=== PATIENT | female | born 1995 | race African-American/Black ===

== ENCOUNTER 2018-02-26 11:25 | Observation (INO) | payer MEDICAID ==
[~2018-02-26] VITALS: Ht 160 cm; Wt 94.3 kg
[~2018-02-26 11:25] MED LIST: PREN-96 PO
[2018-02-26] MEDS ORDERED: NIFEdipine 10 MG CAP PO SCH (12:45)
[2018-02-26 12:53] LABS: Basophils # (auto) 0 uL; Basophils % (auto) 0.3 % (0.0-2.0); Eosinophils # (auto) 0.1 uL; Eosinophils % (auto) 0.7 % (0.0-7.0); Hematocrit 29.3 % (36.0-46.0); Hemoglobin 9.9 g/dL (12.2-16.2); Lymphocytes # (auto) 1.3 uL; Mean Corpuscular Hemoglobin 27.6 pg (28.0-32.0); Mean Corpuscular Hgb Conc. 33.8 g/dL (32.0-36.0); Mean Corpuscular Volume 81.6 fL (80.0-100.0); Monocytes # (auto) 0.6 uL; Monocytes % (auto) 7.4 % (0.0-12.0); Neutrophils # (auto) 5.6 uL; Neutrophils % (auto) 74.6 % (37.0-80.0); Platelet Count (auto) 231 10^3/uL (140-450); Red Blood Cells 3.59 10^6/uL (4.0-5.20); Red Cell Distribution Width 13.8 % (11.8-14.3); White Blood Cell 7.5 10^3/uL (4.4-10.8)
[2018-02-27 05:06] LABS: RPR Non Reactive (Non Reactive)
[2018-03-06] MEDS ORDERED: NIF10C GT (14:48)
== END 2018-02-26 15:30 | disposition home or self-care (01) | DRG 566 ==
LOC: LDRP 11:25
PROVIDERS: ADMIT Specialist; ATTEND Specialist
DX: O40.3XX0 Polyhydramnios, third trimester, not applicable or unspecified (principal); O62.9 Abnormality of forces of labor, unspecified; Z3A.34 34 weeks gestation of pregnancy
CPT/HCPCS: 36415; 59025; 76805; 76818; 81002; 85025; 86592; G0378

== ENCOUNTER 2019-07-23 11:00 | Observation (INO) | payer MEDICAID ==
[~2019-07-23] VITALS: Ht 160 cm; Wt 98.0 kg
[~2019-07-23 11:00] MED LIST changes: +NIF10C GT
[2019-07-23] MEDS ORDERED: TERBUTALINE SULFATE 1 MG/ML 1ML VIAL SC SCH (11:45)
[2019-07-23] MEDS ORDERED: BETAMETHASONE ACET (6MG/ML) 5ML VIAL IM SCH (12:41)
== END 2019-07-23 13:08 | disposition home or self-care (01) | DRG 566 ==
LOC: LDRP 11:00
PROVIDERS: ADMIT Obstetrics & Gynecology; ATTEND Obstetrics & Gynecology
DX: O62.9 Abnormality of forces of labor, unspecified (principal); Z3A.00 Weeks of gestation of pregnancy not specified
CPT/HCPCS: 59025; 81002; 96372; G0378; J0702; J3105

== ENCOUNTER 2019-07-24 08:30 | Observation (INO) | payer MEDICAID ==
[2019-07-24] MEDS: TERBUTALINE SULFATE 1 MG/ML 1ML VIAL SC SCH ×2 (09:34→10:13)
[2019-07-24] MEDS ORDERED: BETAMETHASONE ACET (6MG/ML) 5ML VIAL IM SCH (10:00)
== END 2019-07-24 11:06 | disposition home or self-care (01) | DRG 955 ==
LOC: LDRP 08:30
PROVIDERS: ADMIT Obstetrics & Gynecology; ATTEND Obstetrics & Gynecology
DX: O09.213 Supervision of pregnancy with history of pre-term labor, third trimester (principal); Z3A.35 35 weeks gestation of pregnancy
CPT/HCPCS: 59025; 81002; 96372; G0378; J3105

== ENCOUNTER 2019-08-04 18:00 | Observation (INO) | payer MEDICAID ==
[~2019-08-04 18:00] MED LIST changes: -NIF10C GT
[2019-08-04 19:53] LABS: Basophils % (auto) 0.5 % (0.0-2.0); Eosinophils # (auto) 0 uL; Monocytes # (auto) 0.6 uL; Neutrophils % (auto) 75.5 % (37.0-80.0); Nucleated Red Blood Cells % 0.1 %
[2019-08-04 19:55] LABS: Basophils # (auto) 0 uL; Eosinophils % (auto) 0.4 % (0.0-7.0); Hematocrit 36.1 % (36.0-46.0); Hemoglobin 11.9 g/dL (12.2-16.2); Lymphocytes # (auto) 1.6 uL; Mean Corpuscular Hemoglobin 27.1 pg (28.0-32.0); Monocytes % (auto) 6.6 % (0.0-12.0); Platelet Count (auto) 283 10^3/uL (140-450); Red Cell Distribution Width 13.9 % (11.8-14.3); White Blood Cell 9.3 10^3/uL (4.4-10.8)
[2019-08-04 20:01] LABS: Potassium 3.7 mmol/L (3.5-5.1)
[2019-08-04 20:03] LABS: INR 0.94 (0.9-1.15); Partial Thromboplastin Time 22.8 sec (23.64-32.05)
[2019-08-04 20:07] LABS: Albumin 2.7 g/dL (3.4-5.0); BUN/Creatinine Ratio 18.8; Bilirubin, Total 0.2 mg/dL (0.2-1.0); Calcium 8.3 mg/dL (8.5-10.1); Total Protein 7.3 g/dL (6.4-8.2); Uric Acid 4.9 mg/dL (2.6-6.0)
[2019-08-06 06:06] LABS: RPR Non Reactive (Non Reactive)
== END 2019-08-04 22:04 | disposition home or self-care (01) | DRG 566 ==
LOC: LDRP 18:00
PROVIDERS: ADMIT Specialist; ATTEND Specialist
DX: O40.3XX0 Polyhydramnios, third trimester, not applicable or unspecified (principal); O13.3 Gestational [pregnancy-induced] hypertension without significant proteinuria, third trimester; Z3A.36 36 weeks gestation of pregnancy
CPT/HCPCS: 36415; 59025; 76818; 80053; 81002; 84112; 84550; 85025; 85610; 85730; 86592; G0378

== ENCOUNTER 2020-12-15 19:58 | Emergency (ER) | payer MEDICAID ==
[~2020-12-15] VITALS: Ht 160 cm; Wt 96.2 kg
[2020-12-15 20:19] VITALS: BP 104/74
== END 2020-12-16 00:11 | disposition home or self-care (01) ==
LOC: ER 19:58
DX: S06.9X9A Unspecified intracranial injury with loss of consciousness of unspecified duration, initial encounter (principal); M54.2 Cervicalgia; W18.00XA Striking against unspecified object with subsequent fall, initial encounter; Y93.89 Activity, other specified; Y92.89 Other specified places as the place of occurrence of the external cause; Y99.8 Other external cause status
CPT/HCPCS: 70450; 72125

== ENCOUNTER 2022-09-02 08:44 | Emergency (ER) | payer MEDICAID ==
[~2022-09-02] VITALS: Ht 160 cm; Wt 88.1 kg
[2022-09-02 09:04] VITALS: BP 131/74
[2022-09-02] MEDS ORDERED: FLUC150T38 PO ×2 (09:31→09:50)
[2022-09-02] MEDS ORDERED: CEPH-510 PO ×2 (09:31→09:50)
[2022-09-02] MEDS ORDERED: IBUP600T28 PO ×2 (09:32→09:50)
[2022-09-02 10:56] LABS: Urine Bacteria NONE SEEN /hpf (None Seen); Urine Blood Negative /uL (Negative); Urine Specific Gravity 1.011 (1.001-1.035); Urine WBC <1 /hpf (0 - 5)
== END 2022-09-02 09:57 | disposition home or self-care (01) ==
LOC: ER 08:44
DX: S66.911A Strain of unspecified muscle, fascia and tendon at wrist and hand level, right hand, initial encounter (principal); N39.0 Urinary tract infection, site not specified; B37.31 Acute candidiasis of vulva and vagina; Z79.899 Other long term (current) drug therapy; X50.1XXA Overexertion from prolonged static or awkward postures, initial encounter; Y93.89 Activity, other specified; Y92.89 Other specified places as the place of occurrence of the external cause; Y99.8 Other external cause status
CPT/HCPCS: 81001; 87086

== ENCOUNTER 2023-04-28 12:43 | Observation (INO) | payer MEDICAID ==
[~2023-04-28 12:43] MED LIST changes: +CEPH-510 PO; +FLUC150T38 PO; +IBUP1TAB5 PO
== END 2023-04-28 14:55 | disposition home or self-care (01) ==
LOC: LDRP 12:43 → UNDOADMOB 12:43 → LDRP 13:16
PROVIDERS: ADMIT Obstetrics & Gynecology; ATTEND Obstetrics & Gynecology
DX: O62.9 Abnormality of forces of labor, unspecified (principal); O42.912 Preterm premature rupture of membranes, unspecified as to length of time between rupture and onset of labor, second trimester; Z3A.27 27 weeks gestation of pregnancy
CPT/HCPCS: 59025; 76815; 81002; 94760; G0378

== ENCOUNTER 2023-06-10 11:47 | Observation (INO) | payer MEDICAID | END 2023-06-10 12:40 | disposition home or self-care (01) | LOC: UNDOADMOB 11:47 → LDRP 11:47 → UNDODISOB 12:40 | PROVIDERS: ADMIT Obstetrics & Gynecology; ATTEND Obstetrics & Gynecology | DX: O26.893 Other specified pregnancy related conditions, third trimester (principal); R10.9 Unspecified abdominal pain; O99.283 Endocrine, nutritional and metabolic diseases complicating pregnancy, third trimester; E86.0 Dehydration; O99.891 Other specified diseases and conditions complicating pregnancy; M54.9 Dorsalgia, unspecified; Z3A.33 33 weeks gestation of pregnancy | CPT/HCPCS: 59025; 81002; 94760; G0378 ==

== ENCOUNTER 2023-06-26 11:10 | Observation (INO) | payer MEDICAID ==
[~2023-06-26] VITALS: Ht 160 cm; Wt 102.1 kg
== END 2023-06-26 12:45 | disposition home or self-care (01) ==
LOC: UNDOADMOB 11:10 → LDRP 11:10 → UNDODISOB 12:45
PROVIDERS: ADMIT Obstetrics & Gynecology; ATTEND Obstetrics & Gynecology
DX: O62.9 Abnormality of forces of labor, unspecified (principal); Z3A.35 35 weeks gestation of pregnancy
CPT/HCPCS: 59025; 81002; G0378

== ENCOUNTER 2023-07-03 10:55 | Observation (INO) | payer MEDICAID | END 2023-07-03 13:23 | disposition home or self-care (01) | LOC: UNDOADMOB 10:55 → LDRP 10:55 | PROVIDERS: ADMIT Obstetrics & Gynecology; ATTEND Obstetrics & Gynecology | DX: O62.9 Abnormality of forces of labor, unspecified (principal); Z3A.36 36 weeks gestation of pregnancy | CPT/HCPCS: 59025; 76818; 81002; G0378 ==

== ENCOUNTER 2023-07-06 06:55 | Observation (INO) | payer MEDICAID | END 2023-07-06 08:45 | disposition home or self-care (01) | LOC: LDRP 06:55 | PROVIDERS: ADMIT Obstetrics & Gynecology; ATTEND Obstetrics & Gynecology | DX: O62.9 Abnormality of forces of labor, unspecified (principal); O26.893 Other specified pregnancy related conditions, third trimester; R10.30 Lower abdominal pain, unspecified; Z3A.37 37 weeks gestation of pregnancy | CPT/HCPCS: 59025; 81002; G0378 ==

== ENCOUNTER 2023-07-07 10:20 | Inpatient (IN) | payer MEDICAID ==
[~2023-07-07] VITALS: Ht 160 cm; Wt 104.3 kg
[2023-07-07] MEDS ORDERED: PHISODERM TOP SOLN 240ML BTL TOP PRN (11:30)
[2023-07-07] MEDS ORDERED: DERMOPLAST 60ML BOTTLE TOP PRN (11:30)
[2023-07-07] MEDS ORDERED: PROMETHAZINE HCL 25 MG/ML 1ML IV PRN (11:30)
[2023-07-07] MEDS ORDERED: BUTORPHANOL TARTRATE 2 MG/1 ML VIAL IV PRN ×2 (11:30)
[2023-07-07] MEDS ORDERED: LIDOCAINE 2%HCL (LOCAL ANESTH.) INJ 20ML MDV IJ PRN (11:30)
[2023-07-07] MEDS ORDERED: WITCH HAZEL-GLYCERIN PAD TOP PRN (11:30)
[2023-07-07 12:20] LABS: Basophils # (auto) 0 10 ^3/uL (0-0.2); Basophils % (auto) 0.3 % (0.0-2.0); Eosinophils # (auto) 0 10 ^3/uL (0-0.8); Eosinophils % (auto) 0.5 % (0.0-7.0); Hematocrit 35.9 % (36.0-46.0); Hemoglobin 11.8 g/dL (12.2-16.2); Lymphocytes # (auto) 1.8 10 ^3/uL (0.4-5.4); Lymphocytes % (auto) 23.3 % (10.0-50.0); Mean Corpuscular Hemoglobin 27.5 pg (28.0-32.0); Mean Corpuscular Hgb Conc. 32.9 g/dL (32.0-36.0); Mean Corpuscular Volume 83.6 fL (80.0-100.0); Monocytes # (auto) 0.4 10 ^3/uL (0-1.3); Monocytes % (auto) 5.8 % (0.0-12.0); Neutrophils # (auto) 5.4 10 ^3/uL (1.6-8.6); Neutrophils % (auto) 70.1 % (37.0-80.0); Red Blood Cells 4.29 10^6/uL (4.0-5.20); Red Cell Distribution Width 13.3 % (11.8-14.3); White Blood Cell 7.7 10^3/uL (4.4-10.8)
[2023-07-07 12:38] LABS: INR 0.94 (0.9-1.15); Partial Thromboplastin Time 27.6 SEC (24.5-34.5); Prothrombin Time 9.9 sec (9.3-11.8)
[2023-07-07 12:45] LABS: Urine Bacteria NONE SEEN /hpf (None Seen); Urine Blood Negative /uL (Negative); Urine Clarity HAZY (Clear); Urine Color Yellow (Yellow); Urine Mucus FEW (None Seen); Urine Protein, UAD 1+ (Negative); Urine Specific Gravity 1.026 (1.001-1.035); Urine Urobilinogen Normal (Negative); Urine WBC 1 /hpf (0 - 5); Urine pH 6.5 (5.0-8.0)
[2023-07-07 12:48] LABS: Alanine Aminotransferase 13 U/L (7-40); Albumin 3.9 g/dL (3.2-4.8); Alkaline Phosphatase 143 U/L (46-116); Anion Gap 9 (5-15); Aspartate Aminotransferase 13 U/L (13-40); Calcium 9.2 mg/dL (8.5-10.1); Carbon Dioxide 24 mmol/L (20-30); Chloride 106 mmol/L (98-107); Glucose 82 mg/dL (74-106); Potassium 3.6 mmol/L (3.5-5.1); Sodium 139 mmol/L (136-145)
[2023-07-07 12:49] LABS: Bilirubin, Total 0.3 mg/dL (0.2-1.0); Total Protein 6.5 g/dL (5.7-8.2)
[2023-07-07 13:02] LABS: Amphetamine Screen, Urine Neg (NEGATIVE); Barbiturate Scree,Urine Neg (NEGATIVE); Benzodiazephine Screen, Urine Neg (NEGATIVE)
[2023-07-07 13:03] LABS: Cannabinoid Screen, Urine Neg (NEGATIVE); Cocaine Screen, Urine Neg (NEGATIVE); Opiate Scree,Urine Neg (NEGATIVE); Phencyclidine Screen, Urine Neg (NEGATIVE)
[2023-07-07 13:17] LABS: BUN/Creatinine Ratio 10.9 (10.0-20.0); Blood Urea Nitrogen < 5 mg/dL (9-23)
[2023-07-07] MEDS ORDERED: miSOPROStol 50 MCG per PRE-CUT 1/2 TAB PO PRN (14:00)
[2023-07-07] MEDS ORDERED: TRANEXAMIC ACID 1,000 MG in SODIUM CHL 0.9% 100 ML IV ONE (14:00)
[2023-07-07] MEDS ORDERED: METHYLERGONOVINE MALEATE 0.2 MG/ML AMP IM ONE (14:00)
[2023-07-07] MEDS ORDERED: miSOPROStol 100 mcg TAB SL PRN (14:00)
[2023-07-07] MEDS ORDERED: LACT. RINGERS/OXYTOCIN 20UNITS 500 ML IV ONE ×2 (14:00→14:30)
[2023-07-07] MEDS ORDERED: DIPHENOXYLATE W/ATROPINE 2.5 MG TAB PO PRN (14:00)
[2023-07-07] MEDS ORDERED: miSOPROStol 100 mcg TAB PR PRN (14:00)
[2023-07-07] MEDS ORDERED: CARBOPROST TROMETHAMINE 250 MCG/1ML VIAL IM ONE (14:00)
[2023-07-07] MEDS: LACTATED RINGER'S 1,000 ML IV SCH ×2 (14:04→22:59)
[2023-07-07] MEDS ORDERED: PENICILLIN G POTASSIUM 2,500,000 UNITS in D5W 5% 50 ML IV SCH (16:15)
[2023-07-07] MEDS ORDERED: PENICILLIN G POT 5MIL/D5 50ML 50 ML IV ONE (16:15)
[2023-07-07] MEDS ORDERED: ePHEDrine SULFATE 50 MG/ML AMP IV ONE (16:30)
[2023-07-07] MEDS ORDERED: LACTATED RINGER'S 1,000 ML IV ONE (16:30)
[2023-07-07] MEDS ORDERED: ROPIVACAINE HCL 200 ML EPI SCH (16:30)
[2023-07-07] MEDS ORDERED: fentaNYL CITRATE 100 MCG/2 ML VL IV ONE (16:30)
[2023-07-07] MEDS ORDERED: NALOXONE HCL 0.4 MG/ML VIAL IV ONE (16:30)
[2023-07-07] MEDS ORDERED: LIDOCAINE HCL 2 %PF INJ 10ML AMP IJ ONE (16:30)
[2023-07-07] MEDS ORDERED: FAMOTIDINE (10MG/ML) 2ML VL IV ONE (18:08)
[2023-07-07] MEDS ORDERED: diphenhdrAMINE HCL 50 MG/1 ML VL ONE (18:16)
[2023-07-07] MEDS ORDERED: LACT. RINGERS/OXYTOCIN 20UNITS 1,000 ML IV SCH (20:30)
[2023-07-07] MEDS ORDERED: TERBUTALINE SULFATE 1 MG/ML 1ML VIAL SC PRN (20:30)
[2023-07-07] MEDS: PENICILLIN G POTASSIUM 2,500,000 UNITS in D5W 5% 50 ML IV SCH (20:33)
[2023-07-08] VITALS (7 sets, daily range): BP systolic 123–143; BP diastolic 65–88; PULSE 60–91; RESP 16–20; TEMP 98.6–99.5; O2SAT 95–100
[2023-07-08] MEDS: PENICILLIN G POTASSIUM 2,500,000 UNITS in D5W 5% 50 ML IV SCH (00:19)
[2023-07-08] MEDS ORDERED: METHYLERGONOVINE MALEATE 0.2 MG/ML AMP IM ONE (02:45)
[2023-07-08] MEDS ORDERED: LACT. RINGERS/OXYTOCIN 20UNITS 500 ML IV ONE ×2 (02:45→03:15)
[2023-07-08] MEDS ORDERED: ONDANSETRON ODT 4 MG TAB PO PRN (02:45)
[2023-07-08] MEDS: IBUPROFEN 800 MG TAB PO SCH ×3 (04:12→18:22)
[2023-07-08 07:06] LABS: RPR Non Reactive (Non Reactive)
[2023-07-08] MEDS: ACETAMINOPHEN 325 MG TAB PO PRN ×2 (07:21→17:32)
[2023-07-08] MEDS ORDERED: DOCUSATE SOD 100 MG CAP PO SCH (22:00)
[2023-07-09 03:00] VITALS: BP 127/84; PULSE 70; RESP 16; TEMP 98.6; O2SAT 100
[2023-07-09] MEDS: ACETAMINOPHEN 325 MG TAB PO PRN (03:52)
[2023-07-09] MEDS: IBUPROFEN 800 MG TAB PO SCH ×2 (06:23)
[2023-07-09 06:30] VITALS: BP 143/88; PULSE 66; RESP 16; TEMP 98.9
[2023-07-09 07:00] VITALS: PULSE 88; RESP 18
[2023-07-09 07:33] LABS: Basophils # (auto) 0 10 ^3/uL (0-0.2); Basophils % (auto) 0.3 % (0.0-2.0); Eosinophils # (auto) 0.2 10 ^3/uL (0-0.8); Eosinophils % (auto) 1.6 % (0.0-7.0); Hemoglobin 11.5 g/dL (12.2-16.2); Lymphocytes # (auto) 2.2 10 ^3/uL (0.4-5.4); Lymphocytes % (auto) 18.7 % (10.0-50.0); Mean Corpuscular Volume 84.3 fL (80.0-100.0); Monocytes # (auto) 0.5 10 ^3/uL (0-1.3); Monocytes % (auto) 4.2 % (0.0-12.0); Neutrophils # (auto) 8.8 10 ^3/uL (1.6-8.6); Neutrophils % (auto) 75.2 % (37.0-80.0); Red Blood Cells 4.26 10^6/uL (4.0-5.20); Red Cell Distribution Width 13.4 % (11.8-14.3); White Blood Cell 11.8 10^3/uL (4.4-10.8)
[2023-07-09 19:06] LABS: Treponema pallidum Ab (FTA-Ab) Non Reactive (Non Reactive)
== END 2023-07-09 09:58 | disposition home or self-care (01) | DRG 560 ==
LOC: LDRP 10:20 → OBSVTOIN 11:10 → LDRP 18:45
PROVIDERS: ADMIT Obstetrics & Gynecology; ATTEND Obstetrics & Gynecology
PROC: 3E0R3BZ Introduction of Anesthetic Agent into Spinal Canal, Percutaneous Approach (ICD-10-PCS; 2023-07-07)
PROC: 00HU33Z Insertion of Infusion Device into Spinal Canal, Percutaneous Approach (ICD-10-PCS; 2023-07-07)
PROC: 10E0XZZ Delivery of Products of Conception, External Approach (ICD-10-PCS; principal; 2023-07-08)
DX: O77.0 Labor and delivery complicated by meconium in amniotic fluid (principal); Z37.0 Single live birth; Z3A.37 37 weeks gestation of pregnancy
CPT/HCPCS: 36415; 59025; 59409; 62282; 76815; 80053; 80307; 81001; 81002; 84112; 85025; 85610; 85730; 86592; 86850; 86900; 86901; 94760; 94762; 96360; 96361; 96365; G0378; J2540; J2590; J3490; J7060

== ENCOUNTER 2023-12-17 11:12 | Emergency (ER) | payer MEDICAID ==
[~2023-12-17] VITALS: Ht 152.4 cm; Wt 97.5 kg
[~2023-12-17 11:12] MED LIST changes: -CEPH-510 PO; -FLUC150T38 PO; -IBUP1TAB5 PO
[2023-12-17 11:32] VITALS: BP 156/57; PULSE 106; RESP 18; O2SAT 97
[2023-12-17 11:50] LABS: Basophils # (auto) 0 10 ^3/uL (0-0.2); Basophils % (auto) 0.3 % (0.0-2.0); Eosinophils # (auto) 0.2 10 ^3/uL (0-0.8); Eosinophils % (auto) 2.1 % (0.0-7.0); Hematocrit 36.1 % (36.0-46.0); Lymphocytes # (auto) 2.1 10 ^3/uL (0.4-5.4); Lymphocytes % (auto) 28.8 % (10.0-50.0); Mean Corpuscular Hemoglobin 27.5 pg (28.0-32.0); Mean Corpuscular Hgb Conc. 33.1 g/dL (32.0-36.0); Monocytes # (auto) 0.3 10 ^3/uL (0-1.3); Monocytes % (auto) 3.9 % (0.0-12.0); Neutrophils # (auto) 4.7 10 ^3/uL (1.6-8.6); Neutrophils % (auto) 64.9 % (37.0-80.0); Red Blood Cells 4.35 10^6/uL (4.0-5.20); Red Cell Distribution Width 12.9 % (11.8-14.3); White Blood Cell 7.2 10^3/uL (4.4-10.8)
[2023-12-17 16:02] LABS: Urine Bacteria FEW /hpf (None Seen); Urine Blood 3+ /uL (Negative); Urine Clarity Turbid (Clear); Urine Color Light-Orange (Yellow); Urine Mucus FEW (None Seen); Urine Protein, UAD 1+ (Negative); Urine Specific Gravity 1.028 (1.001-1.035); Urine Urobilinogen Normal (Negative); Urine WBC 11 /hpf (0 - 5); Urine pH 6.5 (5.0-9.0)
== END 2023-12-17 14:50 | disposition left against medical advice (07) ==
LOC: ER 11:12
DX: O03.9 Complete or unspecified spontaneous abortion without complication (principal); R10.2 Pelvic and perineal pain; Z3A.01 Less than 8 weeks gestation of pregnancy
CPT/HCPCS: 36415; 76801; 81001; 84702; 85025